=== PATIENT | male | born 1950 | race Caucasian/White ===

== ENCOUNTER 2016-11-15 06:28 | Day surgery (SDC) | payer MEDICARE, OTHER ==
[2016-11-12 08:10] LABS: BASOPHILS 0.8 %; BASOPHILS ABSOLUTE 0.06 10/3/uL (0.0-0.16); EOSINOPHILS 6.6 %; EOSINOPHILS ABSOLUTE 0.51 10/3/uL (0.0-0.53); HEMATOCRIT 42.6 % (40.0-51.0); HEMOGLOBIN 14.8 g/dL (13.6-17.8); IMMATURE GRANULOCYTES 0.4 %; IMMATURE GRANULOCYTES ABSOLUTE 0.03 10/3/uL (0.0-0.11); LYMPHOCYTES 32.3 %; LYMPHOCYTES ABSOLUTE 2.51 10/3/uL (0.67-4.30); MEAN CORPUS HGB CONC 34.7 g/dL (32.0-36.0); MEAN CORPUSCULAR HEMOGLOB 32.2 pg (26.0-34.0); MEAN CORPUSCULAR VOLUME 92.8 fL (80-100); MEAN PLATELET VOLUME 10.1 fL (9.2-13.0); MONOCYTES 10.7 %; MONOCYTES ABSOLUTE 0.83 10/3/uL (0.21-1.20); NEUTROPHILS 49.2 %; NEUTROPHILS ABSOLUTE 3.83 10/3/uL (2.02-8.40); PLATELET COUNT 178 10/3/uL (150-400); RBC DISTRIBUTION WIDTH 12.8 % (12.0-16.0); RED CELL COUNT 4.59 10/6/uL (4.7-6.1); WHITE BLOOD CELLS 7.8 10/3/uL (4.5-10.5)
[2016-11-12 08:32] LABS: BUN (BLOOD UREA NITROGEN) 15 MG/DL (6-23); CHLORIDE, SERUM 105 MMOL/L (96-112); CO2 (CARBON DIOXIDE) 28 MMOL/L (24-34); CREATININE 1.12 MG/DL (0.70-1.30); GFR AFRICAN AMERICAN 79 ML/MIN (>=60); GFR NON AFRICAN AMERICAN 69 ML/MIN (>=60); GLUCOSE, SERUM 118 MG/DL (60-99); SODIUM, SERUM 141 MMOL/L (135-148)
--- NOTE | ~2016-11-15 | OP ---
Record Of Operation [facility] [address] [place]. 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 PROCEDURE: 1. Aortogram with selective SMA arteriogram. 2. Angioplasty with stent placement to the SMA. ANESTHESIA: Local with sedation. COMPLICATIONS: None. BLOOD LOSS: Minimal. 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 It was felt he would benefit from arteriogram with possible intervention to treat this. This was discussed in detail with the patient and and they expressed understanding and desired to proceed. DESCRIPTION OF PROCEDURE: The patient was taken to the operating room and placed in the supine position. He was given IV sedation without complication. Both groins were prepped and draped in sterile fashion. Ultrasound was used to identify common femoral vein on the right. 1% lidocaine was infiltrated in the skin and subcutaneous tissues. Under ultrasound guidance, an 18-gauge needle was placed in the common femoral artery. A wire was passed in the aorta, which was confirmed with fluoroscopy. The needle was removed. A 5-Burkinan sheath was placed. UF catheter was passed over the wire in the aorta. Aortogram shows patent celiac artery. The SMA is poorly visualized likely due to stenosis. Multiple additional arteriograms were performed with poorly visualized SMA. The patient was given 4000 units of heparin intravenously. Wire was then guided into the SMA as was the UF catheter and arteriogram shows the SMA to be patent a few centimeters beyond the origin with poor filling proximally suggestive of stenosis. Sheath was exchanged for a 6 x 45 sheath. A 4 x 40 balloon was used to angioplasty the SMA and post-arteriogram shows residual stenosis approximately 2 cm from the origin, it is otherwise widely patent. A 7 x 20 self-expanding stent was then deployed at the site of the stenosis after multiple arteriograms and this was post-angioplasty with 7 mm balloon. Post-arteriogram shows widely patent stents. No residual stenosis and good reflux into the aorta. This was felt to be an excellent result. The sheath was removed. Access closed with StarClose device without difficulty. The patient tolerated the procedure well and he was taken to the recovery room in stable condition. He will be discharged later today if stable. [facility] Record Of Operation [address] [place]. [address] NAME: TIERRA PRADO : 52 STATUS : [place] [facility] [place] PAT#: [id number] AGE: 66 ADM/REG DATE : 11/15/16 MR#: [id number] REPORT SERV DATE: 11/15/16 DICTATED BY: MEGHAN MYRICK DATE: 11/15/16 REPORT STATUS : Draft TRANSCRIBED BY: BRENT DATE: 11/15/16 Meghan Myrick M.D. / [id number] CC: Prisca Martinez MD
[~2016-11-15 06:28] MED LIST: AMITIZA24 PO; EMLA TOP; FLOMAX4 PO; FLONASE NAS; LIDEX CREAM 0.015 GM TOP; LINZESS 290 M290 MCG PO; LORT7 PO; MIRALAXPKT PO; NEXIUM40 PO; NITROSTAT0.4 MG SL; NORCO1 TAB PO; PEPCID40 MG PO; SOMATAB PO; V5 PO
[2016-11-15] MEDS ORDERED: LIPITOR40 PO (12:24)
[2016-11-15] MEDS ORDERED: PLAVIX PO (12:25)
== END 2016-11-15 14:00 | disposition home or self-care (01) ==
LOC: SDC 06:28 → SSU1 11:10
PROVIDERS: Surgery
DX: K55.1 Chronic vascular disorders of intestine (principal); G47.33 Obstructive sleep apnea (adult) (pediatric); I25.10 Atherosclerotic heart disease of native coronary artery without angina pectoris; K21.9 Gastro-esophageal reflux disease without esophagitis; J44.9 Chronic obstructive pulmonary disease, unspecified; Z88.8 Allergy status to other drugs, medicaments and biological substances
CPT/HCPCS: 36245; 37236; 75726; 80048; 85025; A9270-GY; C1725; C1769; C1876; C1894; J0461; J0690; J2405; J3010; Q9966